=== PATIENT | female | born 1945 | race Caucasian/White ===

== ENCOUNTER 2018-05-23 13:16 | Day surgery (SDC) | payer MEDICARE, OTHER ==
[~2018-05-23 13:16] MED LIST: BIOTIN1 M1 PO; CALCIUM + VITA1 EACH PO; ECHINACEA125 MG PO; GABAPENTIN300 MG PO; IBRANCE75 MG PO; LETROZOLE2.5 MG PO; OXYCODONE HCL10 MG PO; PERCOCET 5-3251 EACH PO; RESTORIL15 MG PO; SLEEP AID25 M2 PO; UNISOM25 MG PO; VERZENIO150 MG PO; VITAMIN B COMP1 EACH PO; ZOLOFT50 MG PO
--- NOTE | 2018-05-23 13:51 | NUR ---
PATIENT AMBULATES TO IMAGING WITH SHARAN.
--- NOTE | 2018-05-25 12:32 | CONS ---
[facility] [address] [place] [address] [place], [place] [address] Signed DATE OF CONSULTATION: 05/23/2018 HISTORY OF PRESENT ILLNESS: This 73-year-old white woman is a patient Dr. Chanel as well as KADEEM Mahoney. She is known to have advanced breast cancer with right axillary and mediastinal and cervical adenopathy. She has had a pleural effusion for quite some time certainly dating back to October and more recently on a PET scan. A plan for ultrasound-guided thoracentesis was sought by Dr. Chanel, managing oncologist. Dr. Dorina Bob, the radiologist is not available, and [facility] is unable to perform ultrasound-guided thoracentesis, on that basis I saw her this past week. Her pleural effusion looks relatively large. As it turns out, she is not particularly short of breath unless she exerts herself. She does have significant arm edema. She is admitted at this time for consideration of right thoracentesis by ultrasound guidance. PHYSICAL EXAMINATION: She looks well overall. She is accompanied by her daughter. In the upright position with the arms draped over the table, the right chest was evaluated with an ultrasound showing no significant pleural effusion posteriorly and reasonably close apposition of the pleura to the chest wall with normal motion of the lung. There was NO significant drainable pleural fluid visible posteriorly. An anterior and recumbent evaluation was undertaken. In the semi-recumbent position, pleural fluid could be identified anteriorly in the mid axillary line. It is most consistent with a fluid loculation, and not likely communicating with there general pleural space. Good excursion of the lung is noted. ASSESSMENT: The chest x-ray that was done immediately prior to our interrogation with the ultrasound device does show a right pleural effusion at the base and some volume loss of the right side. As it turns out, the patient is really not short of breath at rest at all only and exertion from time to time. The typical posterior approach for thoracentesis would likely have been ineffective and probably would have resulted in a pneumothorax as there was almost no pleural fluid posteriorly. An anterior approach for pleural fluid withdrawal was discussed and offered to the patient, but in consideration of the high probability of a loculated effusion and relatively limited benefit considering she is not dyspneic at rest, we are going to forego thoracentesis at this time. If her symptoms should worsen, then consideration will be made for thoracentesis of the Electronically Signed By: SHIRIN GORMAN MD 05/25/18 1232 PATIENT NAME: ZA ALCANTAR CONSULTATION DATE OF : 43 REPORT #: [id number] PHYSICIAN: SHIRIN GORMAN MD PCP: ROSIO MAI PA-C REPORT IS CONFIDENTIAL AND NOT TO BE RELEASED WITHOUT AUTHORIZATION [facility] [address] [place] [id number] Signed loculated pleural fluid at that point. She has no evidence of infection at this time and no other symptoms. MD HOMA Euceda/JAVID /[id number] cc: Marissa Chanel MD Copies: MARISSA CHANEL MD ~ Electronically Signed By: SHIRIN GORMAN MD 05/25/18 1232 PATIENT NAME: ZA ALCANTAR CONSULTATION DATE OF : 43 REPORT #: [id number] PHYSICIAN: SHIRIN GORMAN MD PCP: ROSIO MAI PA-C REPORT IS CONFIDENTIAL AND NOT TO BE RELEASED WITHOUT AUTHORIZATION
== END 2018-05-23 18:00 | disposition home or self-care (01) ==
LOC: DS 13:16 → OPS 13:16 → DS 14:00 → OPS 14:00
DX: J90 Pleural effusion, not elsewhere classified (principal); Z85.3 Personal history of malignant neoplasm of breast; Z88.2 Allergy status to sulfonamides; Z79.899 Other long term (current) drug therapy
CPT/HCPCS: 71046